=== PATIENT | female | born 1970 | race Caucasian/White ===

== ENCOUNTER → 2017-01-27 | Outpatient (CLI) | payer OTHER | END | disposition home or self-care (01) | LOC: CFH 06:43 | DX: R10.30 Lower abdominal pain, unspecified (principal); R06.02 Shortness of breath; E78.00 Pure hypercholesterolemia, unspecified; K21.9 Gastro-esophageal reflux disease without esophagitis; Z79.890 Hormone replacement therapy; Z87.891 Personal history of nicotine dependence; Z90.710 Acquired absence of both cervix and uterus | CPT/HCPCS: 71010; 76830 ==

== ENCOUNTER → 2017-05-19 | Outpatient (CLI) | payer OTHER | END | disposition home or self-care (01) | LOC: CFH 14:33 | DX: Z13.820 Encounter for screening for osteoporosis (principal); M85.88 Other specified disorders of bone density and structure, other site | CPT/HCPCS: 77080 ==

== ENCOUNTER 2019-01-11 07:25 | Emergency (ER) | payer OTHER ==
[~2019-01-11] VITALS: Ht 157.5 cm; Wt 87.8 kg
[2019-01-11] MEDS ORDERED: MORPHINE SULFATE 4 MG/ML, 1ML ONE (07:54)
[2019-01-11] MEDS ORDERED: ONDANSETRON 2MG/ML, 2ML ONE (07:54)
[2019-01-11] MEDS ORDERED: SODIUM CHLORIDE FLUSH 10ML SYR IVF ONE (08:00)
[2019-01-11] MEDS ORDERED: MORPHINE SULFATE 4 MG/ML, 1ML IVPush PRN (08:00)
[2019-01-11] MEDS ORDERED: ONDANSETRON 2MG/ML, 2ML IVPush ONE (08:00)
--- NOTE | 2019-01-11 08:01 | NUR ---
PT WITH C/O ABD PAIN 02/08, STATES STARTED "SOMETIME THIS MORNING", ALSO HAVING NAUSEA WITH SMALL AMOUNT OF EMESIS, "JUST LIQUID". PT STATES SHE HAS HAD PRIOR EPISODE OF ABD PAIN, PT WITH HX GALLSTONES. PT DENIES CP, SOB, TRAUMA. PT PLACED ON NIBP, CONT PULSE OX. PIV PLACED, LABS DRAWN, UA COLLECTED.
[2019-01-11 08:20] LABS: BASOPHILS # (AUTO) 0.01 x10^3/uL (0-0.1); BASOPHILS % (AUTO) 0 % (0-1); EOSINOPHILS # (AUTO) 0.07 x10^3/uL (0-0.4); EOSINOPHILS % (AUTO) 1 % (1-7); LYMPHOCYTES # (AUTO) 0.53 x10^3/uL (1-3.4); LYMPHOCYTES % (AUTO) 8 % (22-44); MD NO; MEAN CORPUSCULAR HEMOGLOBIN 28.9 pg (27.0-34.8); MEAN CORPUSCULAR HGB CONC 31.9 g/dL (32.4-35.8); MEAN CORPUSCULAR VOLUME 90.6 fL (80-100); MEAN PLATELET VOLUME 8.9 fL (7.4-10.4); MONOCYTES # (AUTO) 0.29 x10^3/uL (0.2-0.8); MONOCYTES % (AUTO) 4 % (2-9); NEUTROPHILS # (AUTO) 6.05 x10^3/uL (1.8-6.8); NEUTROPHILS % (AUTO) 87 % (42-75); PLATELET COUNT 203 x10^3/uL (130-400); RED BLOOD COUNT 4.14 x10^6/uL (3.82-5.3); RED CELL DISTRIBUTION WIDTH 15.2 % (9.6-15.2)
[2019-01-11 08:27] LABS: ALANINE AMINOTRANSFERASE 98 U/L (12-78); ALBUMIN 3.6 g/dL (3.4-5.0); ANION GAP 8 mmol/L (5-15); CALCIUM 8.4 mg/dL (8.5-10.1); CHLORIDE 104 mmol/L (98-107); CREATININE 0.98 mg/dL (0.55-1.02)
[2019-01-11 08:27] LABS: MICROSCOPIC AUTO
[2019-01-11 08:30] LABS: ALKALINE PHOSPHATASE 79 U/L (45-117); BILIRUBIN,TOTAL 0.3 mg/dL (0.2-1.0); TOTAL PROTEIN 7.3 g/dL (6.4-8.2)
[2019-01-11 08:32] LABS: CULTURE INDICATED? YES
--- NOTE | 2019-01-11 09:16 | NUR ---
PT HAD ABD US, AWAITING RESULTS, VSS.
[2019-01-11 10:10] VITALS: BP 114/60
--- NOTE | 2019-01-11 10:11 | NUR ---
Patient/Caregiver given discharge instructions and they have confirmed that they understand the instructions. Patient ambulatory with steady gait. Pt left with all personal belongings.
== END 2019-01-11 10:13 | disposition home or self-care (01) ==
LOC: ED 08:53
DX: K80.20 Calculus of gallbladder without cholecystitis without obstruction (principal); R74.0 Nonspecific elevation of levels of transaminase and lactic acid dehydrogenase [LDH]; K21.9 Gastro-esophageal reflux disease without esophagitis; Z87.891 Personal history of nicotine dependence; F32.9 Major depressive disorder, single episode, unspecified; E11.9 Type 2 diabetes mellitus without complications; Z90.710 Acquired absence of both cervix and uterus
CPT/HCPCS: 36415; 76700; 80053; 81001; 83690; 85025; 87086; 96374; 96375; 99284; J2270; J2405

== ENCOUNTER 2019-02-23 11:18 | Emergency (ER) | payer OTHER ==
[~2019-02-23] VITALS: Ht 157.5 cm; Wt 89.6 kg
[2019-02-23 13:28] VITALS: BP 123/69
== END 2019-02-23 14:53 | disposition home or self-care (01) ==
LOC: ED 13:10
DX: R10.11 Right upper quadrant pain (principal); R10.13 Epigastric pain; R10.84 Generalized abdominal pain; R06.02 Shortness of breath; F32.9 Major depressive disorder, single episode, unspecified; E11.9 Type 2 diabetes mellitus without complications; Z90.710 Acquired absence of both cervix and uterus; Z90.49 Acquired absence of other specified parts of digestive tract
CPT/HCPCS: 36415; 74022; 76700; 80053; 81003; 83690; 83880; 84484; 85025; 93005; 99284